=== PATIENT | female | born 1950 | race Caucasian/White ===

== ENCOUNTER 2018-02-15 07:50 | Day surgery (SDC) | payer MEDICARE, BC ==
[~2018-02-15 07:50] MED LIST: ACETAMINOPHEN 1,000 MG/100 ML BTL IV ONE; CELECOXIB 100 MG CAPSULE PO ONE; FAMOTIDINE 20MG TABLET PO ONE; MECLIZINE 25 MG TABLET PO ONE; METOCLOPRAMIDE 10 MG TABLET PO ONE; VANCOMYCIN HCL 1,000 MG in DEXTROSE 5 % IN WATER 250 ML IVPB ONE
[2018-02-15] MEDS ORDERED: PROPOFOL 10 MG/ML VIAL IV ONE (07:51)
[2018-02-15] MEDS ORDERED: HYDRALAZINE 20MG/ML VIAL IV ONE (07:51)
[2018-02-15] MEDS ORDERED: HYDROMORPHONE HCL 2 MG/ML VIAL IV ONE (07:51)
[2018-02-15] MEDS ORDERED: LABETALOL HCL 5MG/ML, 20ML VIAL IV ONE (07:51)
[2018-02-15] MEDS ORDERED: BUPIVACAINE 0.5% W/EPI MPF 30 ML VIAL IVP ONE (07:51)
[2018-02-15] MEDS ORDERED: MIDAZOLAM HCL 2MG/2ML VIAL IV ONE (07:51)
[2018-02-15] MEDS ORDERED: TRANEXAMIC ACID 1,000 MG/10 ML ML IV ONE (07:51)
[2018-02-15] MEDS ORDERED: **ER** KETAMINE HCL 500MG/10ML VIAL IV ONE (07:51)
[2018-02-15 08:48] LABS: ABO GROUP O; ANTIBODY SCREEN NEGATIVE (NEGATIVE); RH TYPE POSITIVE
[2018-02-15] MEDS ORDERED: HYDROMORPHONE HCL 2 MG/ML VIAL IM PRN ×2 (10:11)
[2018-02-15] MEDS ORDERED: ACETAMINOPHEN 325 MG TAB PO PRN (10:11)
[2018-02-15] MEDS ORDERED: ACETAMINOPHEN W/ CODEINE 300MG/60MG TABLET PO PRN ×2 (10:11)
[2018-02-15] MEDS ORDERED: HYDROCODONE/APAP 5/325MG TABLET PO PRN (10:11)
[2018-02-15] MEDS ORDERED: METOCLOPRAMIDE HCL 10 MG/2 ML VIAL IVP PRN (10:11)
[2018-02-15] MEDS ORDERED: NALOXONE 0.4 MG/1 ML VIAL IVP PRN (10:11)
[2018-02-15] MEDS ORDERED: MAGNESIUM HYDROXIDE 30 ML UDC PO PRN (10:11)
[2018-02-15] MEDS ORDERED: ONDANSETRON HCL IV 4 MG/2 ML VIAL IVP PRN (10:11)
[2018-02-15] MEDS ORDERED: DIPHENHYDRAMINE HCL 25 MG CAPSULE PO PRN (10:11)
[2018-02-15] MEDS ORDERED: ACETAMINOPHEN W/ CODEINE 300MG/30MG TABLET PO PRN ×2 (10:11)
[2018-02-15] MEDS ORDERED: KETOROLAC 30 MG/ML VIAL IVP PRN ×2 (10:11)
[2018-02-15] MEDS ORDERED: HYDROCODONE/APAP 7.5/325MG TABLET PO PRN ×2 (10:11)
[2018-02-15] MEDS ORDERED: ZOLPIDEM TARTRATE 5 MG TABLET PO PRN (10:11)
[2018-02-15] MEDS ORDERED: BISACODYL 10 MG SUPP RC PRN (10:11)
[2018-02-15] MEDS ORDERED: TRAMADOL HCL 50 MG TABLET PO PRN ×2 (10:11)
[2018-02-15] MEDS ORDERED: AL HYDROX/MAG HYDROX 30ML UD PO PRN (10:11)
[2018-02-15] MEDS ORDERED: PROMETHAZINE HCL 12.5 MG in 0.9 % SODIUM CHLORIDE 100ML 50 ML IVPB PRN (10:11)
[2018-02-15] MEDS ORDERED: DEXTROSE 5 % AND 0.9 % NACL 1,000 ML IV PRN (12:30)
[2018-02-15] MEDS ORDERED: MYBETRIQ 25 MG PO SCH (17:00)
--- NOTE | 2018-02-15 17:33 | Rehab Evaluation ---
Patient Information - Patient Information Diagnosis: R knee OA Ordered Treatment: PT Evaluate and Treat Status: Initial Evaluation Surgery: Yes (TKA R) Date of Surgery: 02/15/18 Past Medical/Surgical Hx: PAST MEDICAL/SURGICAL HISTORY Past Surgical History rectal and bladder prolapse repair kidney stone removal appy shagufta hyst carpal tunnel surgery tonsils PMH - Respiratory Hx Respiratory Disorders Yes Hx Bronchitis Yes PMH - Cardiovascular Hx Cardiovascular Disorders Yes Hx Edema Yes Hx Vascular Disease Yes: vein ablation x's 1 Exercise Tolerance Poor Hx of Migraines Yes: in past Comment: hx phlebitis 1983 PMH - Neuro Hx Neurological Disorders Yes PMH - GI Hx Gastrointestinal Disorders Yes Hx Gastroesophageal Reflux Yes: controlled with diet Hx Weight Loss/Weight Gain Yes: 30 lb wt loss since July 2017 Hx of Loss of Appetite Yes Comment: Due to fall and tibial fracture. Loss of muscle mass and not eating as much PMH - Hx Genitourinary Disorders Yes Hx Bladder Problem Yes: urgency and frequency on new med. Hx Kidney Stones Yes: recent Comment: s/p hyst PMH - Endocrine Hx Endocrine Disorders Yes Hx Diabetes Yes: dx'd 2 yrs ago Hx Thyroid Disease Yes: low on meds Hx of NIDDM Yes Comment: does not check blood sugars A1C 5.8 PMH - Musculoskeletal Hx Musculoskeletal Disorders Yes Hx Arthritis Yes: OA Hx Osteoporosis No PMH - Psych Hx Psychiatric Problems No PMH - Hematology/Oncology Hx Hematology/Oncology No Disorders Premorbid Status: Detail (The patient was independent with all mobility prior to surgery.) Social History: Detail (The patient lives with spouse in a 2 story house but will not be using the second floor. The house has 5 steps at the enterance with 2 handrails. The patient's bathroom is equipped with a walk in shower with a seat and grab bars and an elevated toilet. The patient has a 2 wheeled walker and a single point cane with a wide base.) Precautions: [place], Fall, Other (WBAT on the R LE) - Time With Patient Total Time Spent With Patient (Min): 30 Treatment Procedures: Detail (Initial Eval and gait training) Subjective Information - Subjective Information Per Patient (The patient had no complaints of pain but did complain of visual floaters when standing initially.) Objective Data - Mental Status Patient Orientation: Oriented x3 - Visual Perception Appears within normal limits for therapeutic activities - ROM Not within normal limits (The patient's R knee was limited s/p surgery.) - Strength/Tone Not within normal limits (The patient's R LE strength was limited s/p surgery however was functional ie: the patient was able to complete a SLR.) - Bed Mobility Independent (The patient was independent with supine to and from sit transfer.) - Transfers Independent (The patient was independent with sit to and from stand transfer and supervision for safety only with toilet transfer.) - Balance Balance Sitting: Good Balance Standing: Good - Sensation Intact - Gait Detail (The patient ambulated 11 feet x1 and 52 feet x1 with 2 wheeled walker independently WBAT on the R LE.) Therapy Assessment - Therapy Assessment Detail (The patient was independent with bed mobility , transfers and ambulation on levels. Feel patient will progress well with mobility.) Problem List - Problem List Physical Therapy Problem List: Detail (Decreased R knee AROM and R LE strength as to be expected following surgery.) Goals - Goals Physical Therapy Goals: 1) The patient will be independent with TKA HEP. 2) The patient will ambulate on stairs using proper technique with supervision for safety. Prognosis - Prognosis Good Plan - Plan Physical Therapy Plan: PT 1-2 sessions for instruction in HEP and gait training on stairs.
[2018-02-15] MEDS: VANCOMYCIN HCL 1,000 MG in DEXTROSE 5 % IN WATER 250 ML IVPB SCH ×2 (20:59)
[2018-02-15] MEDS: DOCUSATE SODIUM 100 MG CAPSULE PO SCH (21:11)
[2018-02-15] MEDS: FERROUS SULFATE 325 MG TAB PO SCH (21:11)
--- NOTE | 2018-02-15 21:33 | Operative Note ---
DATE OF SURGERY: 02/15/2018 PREOPERATIVE DIAGNOSIS: Posttraumatic knee arthrosis right knee status post tibial plateau split depression fracture seven months ago. POSTOPERATIVE DIAGNOSIS: Posttraumatic knee arthrosis right knee status post tibial plateau split depression fracture seven months ago. PROCEDURE: 1. Total knee arthroplasty. 2. Lateral release. 3. Repair of proximal patellar tendon. SURGEON: Mariano Middleton M.D. ANESTHESIA: Spinal, Mayda Brule, PROCESS IMPROVEMENT MANAGER. COMPLICATIONS: None. BLOOD LOSS: Minimal. TOURNIQUET TIME: 97 minutes. OPERATIVE FINDINGS: Depression of the medial and lateral tibial plateaus healed , posttraumatic arthrosis, femoral arthrosis, deficient very weak bone, osteopenic bone, deficient patellar tendon, partial tear patellar tenon on inferior pole of the patella, tight lateral retinaculum after patella replacement. COMPONENTS PLACED: 2 gram Vancomycin, cemented Gonzalez [employer] Nephew Journey II Oxinium size 6 femoral component and a Legion revision tibial component size 6 with a 6 mm offset cam and a 200 mm total stem cemented with a 9 mm thick poly insert and 32 mm cemented patellar component. INDICATIONS FOR OPERATION: This is a 67-year-old female well known to myself. She is about seven months status post severe tibial plateau fracture with some underlying knee arthrosis as well. After explaining her different options including immediate internal fixation vs. delayed total knee replacement. I felt it was best to delay likely the inevitable anyways and do a total knee replacement on her once the fracture healed if there was still enough bone and tibial plateau to affix total knee components to and she wants to proceed with that. We did wait about seven months. Once completely healed, would like to proceed with surgery. She still had persistent pain in the knee with certain movements. I explained to her all the other risks and benefits thoroughly in detail for the procedures including but not limited to infection, nerve injury, vessel injury, persistent pain, persistent numbness and tingling in her knee, periprosthetic fracture, need for resection arthroplasty should the components become infected or loosened, nerve injury, vessel injury, blood clot, need for further procedures, need for anticoagulation to prevent blood clots and risks associated with these medications and all of her questions were answered. Rehab and course were outlined and she agreed to proceed. PROCEDURE: The patient was brought to the O.R. and placed in the supine position for the proper surgery. Spinal anesthesia was induced and the right lower extremity and knee were prepped and draped in sterile fashion. The right knee was prepped again with ChloraPrep after it was draped. Intraoperative time- out was performed. The anterior knee was injected with 0.5% Marcaine with Epinephrine. The leg was exsanguinated with an Esmarch. The knee was flexed and the tourniquet inflated to 215 mmHg pressure. Next, the skin and subcutaneous tissues were dissected down. I incised the capsule medially around the medial border of the of the patella to the tibial tubercle. I incised the vastus medialis in line with its fibers in a mid vastus approach. I partially everted the patella. I elevated the capsule subperiosteally and medially. I partially resected the retropatellar fat pad and flexed the knee. There was an obvious tibial plateau fracture medial and lateral split depression fracture, which was healed. There was some significant defect posterolaterally in the plateau here much lower and we referenced off the medial plateau for cutting. Next, we drilled intercondylar femoral hole and inserted the intramedullary guide sinan. We aligned the distal femoral cutting jig off the distal femoral condyles, pinned it in +2 mm position and cut the distal femoral condyles. We had a good cut there. Next, we inserted the sizing jig, placed the sizing jig on the distal femoral condyles, aligned it, pinned it and sized to be a size 6 component. Next, we placed the size 6 cutting jig, dialed in the anterior cuts so it would come out flush without notching. We cut that cut. It was a good cut. She had very soft bone. We then cut the remainder of the chamfer cuts in the usual fashion. Next, we placed a size 6 trial component, centered it, pinned it, and inserted the femoral resection collet and reamed out and box osteotomed out the cruciate bone block. Next, attention was turned to the tibia. We drilled the intercondylar hole, tightened down the tibial canal and had plans of using a revision-type tibial component with stem. Next, we started reaming up in size. We reamed up to basically a 16. That would be the planned size and it was down to 200 mm in length, which was our smallest length tibial post. Next, we took the reamer out and sized the tibial baseplate to be a size 7. We set the tibial baseplate in appropriate alignment, pinned it, and then inserted the reaming collar and then reamed out the proximal tibia through the bushing. Next, we went back to the previous canal reamer and at this time inserted the sounder, 16 mm, and seated to the appropriate depth until it stopped at about 200 mm. We then again inserted the reamer over that and reamed the proximal tibia at this point for our offset posteriorly. We planned on using the 6 mm offset. We assembled all the trials with a 16 mm post distally, 200 length, offset 6 mm posteriorly and they fit nicely. The tibial baseplate seated flush and this was the size and orientation that we used. Next then, through the tibial baseplate we punched the keel. Next, attention was turned to the patella. Attention was turned to the patella. We measured the patella. We set the cutting jig to allow for a 9 mm thick patellar insert and cut the patella. We chamfered off the lateral facet and measured to be 32 mm and drilled three peg holes. We did a trial reduction. The patella tracked nicely hands free and had symmetric flexion and extension gaps. We found with a 9 mm thick poly insert, this allowed for 2 to 3 mm of varus/valgus laxity in flexion and extension. Overall alignment of cuts in extension with the anatomic valgus orientation with the alignment sinan centered on the hip joint and the ankle joint. Next, we mixed cement. We took the knee into flexion. We changed gloves. We brought in a clean sheet. We irrigated all bony surfaces with pulse lavage and antibiotic solution and pre-coated the tibial surfaces and impacted down the preassembled tibial component with the offset 6 m posteriorly and it fit nicely , it seated flush onto our tibial cut surface. We then pre-coated both surfaces and impacted down the femoral component. We placed the trial tibial poly liner and held the knee in extension. We clamped down the patellar component until cement hardened. Once the cement hardened, we took the knee into flexion. We distracted the knee with bone hook and sponge. We irrigated copiously. We injected our 0.5% Marcaine with Exparel and tranexamic acid mixture around the posterior capsule deep medially and laterally, medial and lateral periosteum working deep to superficial, and the vastus medialis and patellar tendon and quadriceps tendon. We then inserted the real tibial poly inserted and verified it was interlocked medially and laterally. The patella was tight laterally. Therefore, we did a lateral piecrusting release so it would track better after repairing the capsule medially with a running #2 Quill suture. Also, there was a small partial avulsion of the patellar tendon off the inferior pole of the patella and we sutured that with [id number] #2 Vicryl sutures to repair this rent defect in that back to the inferior pole and bone, which was again very soft. We irrigated copiously and then closed the skin securely with #2-0 Vicryl and Acticoat provisional temporary dressing was applied. It will be changed to VISHAL dressing prior to discharge tomorrow. She will follow-up in two weeks and we'll limit her flexion to about 45 degrees. cc: Dr. Blake Shelley JOB NUMBER: [id number] MTDD
[2018-02-15] MEDS ORDERED: FORTEO SC SCH (22:00)
[2018-02-15] MEDS ORDERED: PATIENT OWN MED: METFORMIN ER 500 MG PO SCH (22:00)
[2018-02-16] MEDS: HYDROCODONE/APAP 5/325MG TABLET PO PRN ×2 (02:02→11:03)
[2018-02-16 06:54] LABS: HEMATOCRIT 36.2 % (35.0-47.0); HEMOGLOBIN 11.5 gm/dl (11.6-16.0)
[2018-02-16] MEDS ORDERED: PATIENT OWN MED: LEVOTHYROXINE 100 MCG PO SCH (07:00)
[2018-02-16] MEDS: VANCOMYCIN HCL 1,000 MG in DEXTROSE 5 % IN WATER 250 ML IVPB SCH ×2 (09:23)
[2018-02-16] MEDS: DOCUSATE SODIUM 100 MG CAPSULE PO SCH (09:24)
[2018-02-16] MEDS: FERROUS SULFATE 325 MG TAB PO SCH (09:24)
[2018-02-16] MEDS ORDERED: CELECOXIB 100 MG CAPSULE PO SCH (10:00)
[2018-02-16] MEDS ORDERED: RIVAROXABAN 10 MG TABLET PO SCH (10:00)
--- NOTE | 2018-02-16 10:16 | Physical Therapy Tx Note ---
Physical Therapy Tx Note - Treatment Note Tolerated: Good Total Time Spent With Patient: 25 Physical Therapy Tx Note: Detail (The patient completed TKA exercises including : seated heel slides, SLR, ankle pumps, quad sets, gluteal sets and hamstring sets. The patient ambulated independently with two wheeled walker a distance of 108 feet x 1 WBAT on the R LE. The patient ambulated on 3 steps with folded walker and railing with CG/ supervision of one for safety using proper technique. The patient reports she felt comfortable with ambulating on steps and that her had helped her many times. The patient has met all inpatient goals and is discharged from inpatient PT.) Physical Therapy Problem List: Detail (Decreased R knee AROM and R LE strength as to be expected following surgery.) Physical Therapy Goals: 1) The patient will be independent with TKA HEP (Goal met). 2) The patient will ambulate on stairs using proper technique with supervision for safety.(Goal met) Physical Therapy Plan: Patient is discharged from inpatient PT and is to continue with Home PT.
--- NOTE | 2018-02-16 11:48 | Rehab Evaluation ---
Patient Information - Patient Information Diagnosis: R knee OA Ordered Treatment: OT Evaluate and Treat Status: Initial Evaluation Surgery: Yes (TKA R) Date of Surgery: 02/15/18 Past Medical/Surgical Hx: PAST MEDICAL/SURGICAL HISTORY Past Surgical History rectal and bladder prolapse repair kidney stone removal appy shagufta hyst carpal tunnel surgery tonsils PMH - Respiratory Hx Respiratory Disorders Yes Hx Bronchitis Yes PMH - Cardiovascular Hx Cardiovascular Disorders Yes Hx Edema Yes Hx Vascular Disease Yes: vein ablation x's 1 Exercise Tolerance Poor Hx of Migraines Yes: in past Comment: hx phlebitis 1983 PMH - Neuro Hx Neurological Disorders Yes PMH - GI Hx Gastrointestinal Disorders Yes Hx Gastroesophageal Reflux Yes: controlled with diet Hx Weight Loss/Weight Gain Yes: 30 lb wt loss since July 2017 Hx of Loss of Appetite Yes Comment: Due to fall and tibial fracture. Loss of muscle mass and not eating as much PMH - Hx Genitourinary Disorders Yes Hx Bladder Problem Yes: urgency and frequency on new med. Hx Kidney Stones Yes: recent Comment: s/p hyst PMH - Endocrine Hx Endocrine Disorders Yes Hx Diabetes Yes: dx'd 2 yrs ago Hx Thyroid Disease Yes: low on meds Hx of NIDDM Yes Comment: does not check blood sugars A1C 5.8 PMH - Musculoskeletal Hx Musculoskeletal Disorders Yes Hx Arthritis Yes: OA Hx Osteoporosis No PMH - Psych Hx Psychiatric Problems No PMH - Hematology/Oncology Hx Hematology/Oncology No Disorders Premorbid Status: Detail (The patient was independent with all mobility prior to surgery. She and spouse have shared home mgmt, meal prep and laundry since her initial injury in July.) Social History: Detail (The patient lives with spouse in a 2 story house with basement, she stays on the main floor. The house has 5 steps at the entrance with 2 handrails that are far apart. The patient's bathroom is equipped with a walk in shower with a seat and an elevated toilet. The patient has a 2 wheeled walker and a single point cane with a wide base.) Precautions: [place], Fall, Other (WBAT on the R LE) - Time With Patient Total Time Spent With Patient (Min): 40 Treatment Procedures: Detail (OT eval low complexity) Subjective Information - Subjective Information Per Patient Objective Data - Pain Pain Present: Yes (2-3/10) - Mental Status Patient Orientation: Oriented x3 - Visual Perception Appears within normal limits for therapeutic activities - ROM Within normal limits (Alpesh UE AROM WNL) - Strength/Tone Within normal limits (Alpesh UE strength WNL) - Coordination Appears within normal limits for therapeutic activities - Bed Mobility Independent (Ind with supine to sit) - Transfers Independent (Ind with sit to stand from toilet, EOB and chair heights) - Balance Balance Sitting: Good Balance Standing: Good - Sensation Intact - Gait Detail (Pt ambulating in room with 2 wheeled walker Indly.) - ADL's/IADL's Detail (Pt educated and able to demonstrate learning of modified LE dressing techniques including doffing slipper socks and donning pants and tennis shoes. Reviewed kitchen and shower safety and modifications, pt reports she is already using modified techniques for all ADLs and IADLs.) Therapy Assessment - Therapy Assessment Detail (Pt is Ind with modified techniques for LE dressing.) Problem List - Problem List Physical Therapy Problem List: Detail (Decreased R knee AROM and R LE strength as to be expected following surgery.) Occupational Therapy Problem List: Detail (No current OT problems identified.) Goals - Goals Physical Therapy Goals: 1) The patient will be independent with TKA HEP (Goal met). 2) The patient will ambulate on stairs using proper technique with supervision for safety.(Goal met) Occupational Therapy Goals: No current IP OT goals identified. Prognosis - Prognosis Good Plan - Plan Physical Therapy Plan: Patient is discharged from inpatient PT and is to continue with Home PT. Occupational Therapy Plan: No further IP OT recommended. Thank you for this referral.
--- NOTE | 2018-02-16 12:57 | RADIOLOGY REPORT ---
EXAM: RIGHT KNEE HISTORY: POSTOP RIGHT KNEE REPLACEMENT. TECHNIQUE: A single AP view of the right knee was obtained. Comparison: None. FINDINGS: The patient is postop right TKA. The patella cannot be adequately visualized on this single AP only view, obscured by the metallic femoral component of the TKA. Air is seen in the soft tissues which is presumably postoperative in nature. There is good alignment in the AP projection. There is a very slightly curvilinear approximately 3.8 cm in length catheter like density overlying the soft tissues of the upper calf medially and clinical correlation is suggested. On this single view alone it cannot be determined whether this may be within the soft tissues or external to the patient. IMPRESSION: 1. POSTOP RIGHT TKA WITH GOOD ALIGNMENT IN THE AP PROJECTION. THE PATELLA IS OBSCURED BY THE METALLIC FEMORAL COMPONENT. 2. VERY SLIGHTLY CURVILINEAR 3.8 CM IN LENGTH CATHETER LIKE OPACITY OVERLYING THE SOFT TISSUES OF THE UPPER CALF MEDIALLY AND CLINICAL CORRELATION IS SUGGESTED DESCRIBED ABOVE. JOB NUMBER: [id number] MTDD
== END 2018-02-16 13:45 | disposition home or self-care (01) ==
LOC: SUR 07:50 → MEDSURG 14:26 → SUR 02-16 13:45
PROVIDERS: ATTEND Orthopaedic Surgery
DX: M17.31 Unilateral post-traumatic osteoarthritis, right knee (principal); Z87.81 Personal history of (healed) traumatic fracture; E11.9 Type 2 diabetes mellitus without complications
CPT/HCPCS: 27447; 27380; 01402; 64447; 85018; 85014; 36416; 82948; 86900; 86901; 86850; 73560; 76942; J3370; J1170; J3490; G8978; G8979; G8980 ×2; G8987; G8988; G8989; 97110; C1776; J7042; J7060